=== PATIENT | male | born 2000 | race Caucasian/White ===

== ENCOUNTER 2020-02-29 08:28 | Emergency (ER) | payer OTHER, SELFPAY ==
[2020-02-29 08:40] VITALS: BP 159/84; PULSE 88; RESP 20; TEMP 37.5; O2SAT 100
--- NOTE | 2020-02-29 08:40 | ED.EYEPROB ---
HPI - Eye Problem General Chief complaint: Eye Problems Stated complaint: eye problems Time Seen by Provider: 02/29/20 08:41 Source: patient and RN notes reviewed Mode of arrival: ambulatory Limitations: no limitations History of Present Illness HPI Narrative: 20 male presents with concern for left upper eyelid swelling and mild redness. Reports symptoms started on Sunday. He denies pain, vision changes, drainage from the eye. Denies any trauma. Denies any upper respiratory symptoms such as rhinorrhea, nasal congestion. Denies fever MD chief complaint: other (Eyelid swelling) Related Data Home Medications Medication Instructions Recorded Confirmed isotretinoin 02/29/20 Allergies Allergy/AdvReac Type Severity Reaction Status Date / Time No Known Allergies Allergy Unverified 03/19/16 11:25 Review of Systems Review of Systems: Narrative: CONSTITUTIONAL: Denies malaise, chills, sweats, or fever. EYES: Denies visual changes or discharge. Reports left upper eyelid swelling, mild redness ENT: Denies rhinorrhea, congestion, sinus pain, otalgia or sore throat. CARDIOVASCULAR: Denies chest pain, palpitations, or edema. RESPIRATORY: Denies cough or dyspnea. SKIN: Denies rash or itching. All systems reviewed & are unremarkable except as noted in HPI and below PMFSH Comments At time of signature, agree with nursing past medical, surgical, social and family history. There is no relevant family history pertinent to the presenting complaint Exam Narrative: Exam Narrative: GENERAL: Well-appearing, well-nourished, and in no acute distress. HEAD: Normocephalic, atraumatic. EYES: PERRLA, conjunctivae clear, sclera clear, and EOMI. No nystagmus. Mild left upper eyelid edema and erythema consistent with hordeolum ENT: Nares clear. Mucous membranes moist. NECK: Supple. CHEST: No respiratory distress. Speaks in full sentences. HEART: Regular rate and rhythm. SKIN: Warm, dry, no rash. NEURO: Alert and oriented x3. PSYCH: Normal mood and affect Course Course Emergency Course: Patient is aware of diagnosis, understands and agrees to treatment plan. Anticipatory guidance given. Patient agrees to follow-up as directed and is aware of reasons to seek care at the emergency department. Portions of this record may have been created with voice recognition software Vital Signs Vital signs: Vital Signs Temperature 99.5 F 02/29/20 08:40 Pulse Rate 88 02/29/20 08:40 Respiratory Rate 20 02/29/20 08:40 Blood Pressure 159/84 H 02/29/20 08:40 Pulse Oximetry 100 02/29/20 08:40 Temperature 99.5 F 02/29/20 08:40 Pulse Rate 88 02/29/20 08:40 Respiratory Rate 20 02/29/20 08:40 Blood Pressure 159/84 H 02/29/20 08:40 Pulse Oximetry 100 02/29/20 08:40 Reviewed. Pt has been instructed to follow up with his primary care provider within the next week regarding his elevated blood pressure today. MDM - Eye Problem MDM Narrative Medical decision making narrative: Consideration of the following conditions may be warranted for the presenting problem, they are not final diagnoses: Bacterial conjunctivitis, allergic conjunctivitis, viral conjunctivitis, foreign body, blepharitis, chalazion, hordeolum, corneal abrasion. Exam findings show no acute concerns or changes; patient is non-toxic appearing and is in no distress. Patient is appropriate for outpatient treatment and follow-up. Critical Care Time Critical Care Time Critical Care Time: No Discharge Plan Discharge Clinical Impression: Hordeolum Qualifiers: Hordeolum type: unspecified type Laterality: left Eyelid: upper Qualified Code(s): H00.014 - Hordeolum externum left upper eyelid Patient Disposition: Home, Self-Care Condition: Stable Instructions: Shaylee (ED) Additional Instructions: Avoid touching or rubbing her eye Use a warm wet compress for 5 times daily for 10 to 15 minutes Use eyedrops as directed You may take Tylenol or ibuprofen
== END 2020-02-29 08:57 | disposition home or self-care (01) ==
PROVIDERS: Emergency Provider Nurse Practitioner
DX: H00.014 Hordeolum externum left upper eyelid (principal)
CPT/HCPCS: 99213; G0463